=== PATIENT | male | born 1945 | race Caucasian/White ===

== ENCOUNTER → 2023-01-05 | Outpatient (CLI) | payer MEDICARE, OTHER ==
--- NOTE | 2023-01-06 09:11 | CA ---
Transthoracic Echo Report Name: Jose Alberto Mccarthy Age: 77 Gender: M : 1945 Exam Date: 01/05/2023 11:42 Exam Location: [facility] Ht (in): 67 Wt (lb): 160 Ordering Physician: Bj Araiza MD Attending/Referring Phys: Teodora MATT Genetics Physician Jeane Dong [facility] Procedure CPT: Indications: R01.1 MURMUR R00.1 BRACHYCARDIA Cardiac Hx: Technical Quality: Fair Contrast 1: Total Dose (mL): Contrast 2: Total Dose (mL): MEASUREMENTS (Male / Female) Normal Values 2D ECHO LV Diastolic Diameter PLAX 4.7 cm 4.2 - 5.9 / 3.9 - 5.3 cm LV Systolic Diameter PLAX 3.1 cm IVS Diastolic Thickness 0.9 cm 0.6 - 1.0 / 0.6 - 0.9 cm LVPW Diastolic Thickness 1.1 cm 0.6 - 1.0 / 0.6 - 0.9 cm LV Relative Wall Thickness 0.4 LVOT Diameter 2.0 cm M-MODE Aortic Root Diameter MM 2.7 cm LA Systolic Diameter MM 4.5 cm LA Ao Ratio MM 1.7 AV Cusp Separation MM 0.7 cm DOPPLER AV Peak Velocity 266.4 cm/s AV Peak Gradient 28.4 mmHg AV Mean Velocity 192.2 cm/s AV Mean Gradient 16.3 mmHg AV Velocity Time Integral 61.2 cm LVOT Peak Velocity 133.9 cm/s LVOT Peak Gradient 7.2 mmHg LVOT Velocity Time Integral 35.0 cm LVOT Stroke Volume 108.4 cm??? LVOT Stroke Volume Index 58.9 ml/m??? LVOT Cardiac Index 2968.2 cm???/min???m??? AV Area Cont Eq vti 1.8 cm??? AV Area Cont Eq pk 1.6 cm??? Mitral E Point Velocity 62.8 cm/s Mitral A Point Velocity 73.7 cm/s Mitral E to A Ratio 0.9 MV Deceleration Time 256.8 ms LV E' Lateral Velocity 7.5 cm/s Mitral E to LV E' Lateral Ratio 8.3 LV E' Septal Velocity 7.2 cm/s Mitral E to LV E' Septal Ratio 8.7 TR Peak Velocity 251.4 cm/s TR Peak Gradient 25.3 mmHg Right Atrial Pressure 8.0 mmHg Pulmonary Artery Systolic Pressu 33.3 mmHg Right Ventricular Systolic Press 33.3 mmHg FINDINGS Left Ventricle Left ventricular cavity size normal. Normal left ventricular systolic function with no obvious regional wall motion abnormalities. Left ventricular ejection fraction is estimated at 55-60%. Mildly increased wall thickness. Right Ventricle Mild right ventricular dilatation. Mild pulmonary hypertension. Right Atrium Normal right atrial size. Left Atrium Mild left atrial dilatation. Mitral Valve Structurally normal mitral valve. Trace mitral regurgitation. Aortic Valve Trileaflet aortic valve. Diffuse thickening of the aortic valve cusps with reduced excursion. Mild aortic stenosis with a mean gradient of 16 mmHg. Trace aortic regurgitation. Tricuspid Valve Structurally normal tricuspid valve. Mild tricuspid regurgitation. Pulmonic Valve Pulmonic valve not well visualized. Mild pulmonic regurgitation. Pericardium No pericardial effusion. Aorta Normal size aortic root. CONCLUSIONS Left ventricular ejection fraction is estimated at 55-60% Mildly increased wall thickness No obvious regional wall motion abnormalities Mild aortic stenosis , mean gradient 16 mmHg. No proir echo to compare within database Previewed by: Dr Lev Cano (Electronically Signed) Final Date: 06 January 2023 09:10
== END | disposition home or self-care (01) ==
LOC: RADECHMAIN 11:27
PROVIDERS: ATTEND Family Medicine
DX: I35.1 Nonrheumatic aortic (valve) insufficiency (principal); R01.1 Cardiac murmur, unspecified; R00.1 Bradycardia, unspecified
CPT/HCPCS: 93306

== ENCOUNTER → 2024-02-16 | Outpatient (CLI) | payer MEDICARE, OTHER ==
--- NOTE | 2024-02-16 15:22 | US ---
EXAMINATION TYPE: US kidneys/renal and bladder DATE OF EXAM: 02/16/2024 COMPARISON: NONE CLINICAL INDICATION: Male, 78 years old with history of R35.1 NOCTURIA R33.9 URINARY RETENTION; Noctu fred this past year TECHNIQUE: Grayscale and color Doppler imaging of the bilateral kidneys and urinary bladder: FINDINGS: EXAM MEASUREMENTS: Right Kidney: 10.0 x 4.6 x 5.1 cm Left Kidney: 11.8 x 5.0 x 6.4 cm Post Void Residual: 12ml Right Kidney: No hydronephrosis or masses seen Left Kidney: No hydronephrosis or masses seen Bladder: wnl Normal Post Void Residual: yes There is no evidence for hydronephrosis at this point in time. No nephrolithiasis is seen. Cortical medullary differentiation is maintained bilaterally. No masses are identified. The urinary bladder is anechoic. Bilateral ureteral jets are seen. IMPRESSION: 1. No hydronephrosis or nephrolithiasis. 2. Normal post void residual. [facility], , 02/16/2024 3:19 PM
== END | disposition home or self-care (01) ==
LOC: RADUSWWP 14:41
PROVIDERS: ATTEND Family Medicine
CPT/HCPCS: 76770

== ENCOUNTER → 2024-04-13 | Outpatient (CLI) | payer MEDICARE, OTHER ==
[2024-04-13 13:35] LABS: African American GFR (CKD) >90 (>60 ml/min/1.73 sqM); Blood Urea Nitrogen 20 mg/dL (9-20); Non-African American GFR(CKD) 82 (>60 ml/min/1.73 sqM)
--- NOTE | 2024-04-13 14:24 | CT ---
EXAMINATION TYPE: CT abdomen w con CT DLP: 473.80 mGycm, Automated exposure control for dose reduction was used. DATE OF EXAM: 04/13/2024 2:10 PM COMPARISON: Renal ultrasound 02/16/2024 CLINICAL INDICATION:Male, 78 years old with history of R31.9 hematuria; hematuria and frequent urinat ion TECHNIQUE: Standard CT of the abdomen following the administration of 100 cc of Isovue 300 IV contr ast material and oral contrast. Coronal and sagittal reformats were performed. FINDINGS: LOWER CHEST: The visualized lung bases are clear. Aortic valvular calcifications. No pericardial effu rosalia. ABDOMEN LIVER: Unremarkable GALLBLADDER AND BILE DUCTS: Unremarkable. PANCREAS: Unremarkable. SPLEEN: Unremarkable. ADRENAL GLANDS: Unremarkable. KIDNEYS AND URETERS: No evidence of hydronephrosis. No right renal calculi. Nonobstructive left lower pole 5 mm calculus. The kidneys enhance symmetrically. No suspicious renal lesion. Contrast is demon strated within both collecting systems on the delayed phase. STOMACH AND BOWEL: Stomach and duodenum are unremarkable. Enteric contrast reaches the distal small b owel. Scattered colonic diverticulosis without visualized acute diverticulitis. No visualized focal b owel wall thickening or surrounding inflammatory changes. The visualized portions of the appendix are unremarkable. No evidence of bowel obstruction. PERITONEUM: No evidence of pneumoperitoneum or free fluid. VASCULATURE: Moderate atherosclerotic calcifications are present throughout the abdominal aorta and i ts branches. Infrarenal fusiform abdominal aortic aneurysm measuring 3.0 x 2.8 cm with eccentric mura l plaque (series 4, image 32). 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 MUSCULOSKELETAL: No acute osseous abnormalities. Multilevel degenerative disc disease. LYMPH NODES: No evidence for lymphadenopathy. SOFT TISSUE/ABDOMINAL WALL: Small fat filled umbilical hernia. IMPRESSION: 1. No CT evidence for acute abdominal process. 2. Nonobstructive left renal calculus. No suspicious renal lesion. 3. Infrarenal fusiform abdominal aortic aneurysm measuring 3.0 cm. 4. Colonic diverticulosis without visualized acute diverticulitis. [facility], , 04/13/2024 2:22 PM
== END | disposition home or self-care (01) ==
LOC: RADCTMAIN 12:55
PROVIDERS: ATTEND Family Medicine
DX: N20.0 Calculus of kidney (principal); I71.40 Abdominal aortic aneurysm, without rupture, unspecified; K57.30 Diverticulosis of large intestine without perforation or abscess without bleeding; R31.9 Hematuria, unspecified
CPT/HCPCS: 82565; 84520; 74160; 36415; Q9967